=== PATIENT | female | born 1990 | race Caucasian/White ===

== ENCOUNTER → 2016-12-06 | Day surgery (SDC) | payer OTHER ==
--- NOTE | 2016-12-05 16:46 | History & Physical Pre-Op ---
General Information and HPI History of Present Illness: The patient is a 25-year-old 0 Pap smear showing low-grade squamous intraepithelial lesion colposcopic biopsies showing DUSTIN 2. Previous cryotherapy therapy of the cervix Allergies/Medications Allergies: Coded Allergies: No Known Allergies (12/01/16) Past History Surgical History Pertinent Surgical History: none Review of Systems Review of Systems Constitutional: Reports: no symptoms. EENTM: Reports: no symptoms. Cardiovascular: Reports: no symptoms. Respiratory: Reports: no symptoms. GI: Reports: no symptoms. Genitourinary: Reports: no symptoms. Musculoskeletal: Reports: no symptoms. Skin: Reports: no symptoms. Neurological/Psychological: Reports: no symptoms. Hematologic/Endocrine: Reports: no symptoms. Immunologic/Allergic: Reports: no symptoms. All Other Systems: Reviewed and Negative Exam & Diagnostic Data Last 24 Hrs of Vital Signs/I&O Vital signs stable Physical Exam: HEENT: Normocephalic atraumatic Chest: Clear to auscultation bilaterally Cardiovascular: Normal S1-S2 Abdomen: Soft nontender Pelvic: Deferred OR Extremities: No clubbing cyanosis or edema Neurologic: Nonfocal Assessment/Plan Assessment/Plan: DUSTIN-2 LEEP conization As Ranked By This Provider Problem List: 1. DUSTIN II (cervical intraepithelial neoplasia II)
[~2016-12-06] VITALS: Ht 162.6 cm; Wt 49.9 kg
--- NOTE | 2016-12-10 13:19 | Operative Report ---
Operative/Inv Procedure Report Surgery Date: 12/06/16 Name of Procedure: LEEP Pre-Operative Diagnosis: DUSTIN-2 Post-Operative Diagnosis: Same Estimated Blood Loss: scant Surgeon/Learning Support Assistant: ANDRE STEIN MD Anesthesia: local monitored anesthesi Operative/Procedure Note Note: The patient was brought to the operating room and placed on the OR table in the dorsal supine position. She was given adequate anesthesia and repositioned in modified dorsal lithotomy. She was prepped and draped in usual sterile fashion. Cervix was grasped with an Allis clamp and 2 stay sutures of 0 Polysorb were placed at 3 and 9:00 positions in a [id number] fashion. These were tagged. The rubber coated bivalve speculum was placed into the vagina and cervix was injected with 1% lidocaine with epinephrine 2-1/2 mL in each quadrant. A LEEP conization was performed a 6:00 to 12 o'clock position. Very shallow. This was sent to pathology. The base of the defect was coagulated using the Bovie. Hemostasis was good stay sutures were cut and the isthmus removed. The patient was awakened and sent to recovery in good condition. All needle, sponge, and is recalcitrant correct at the end of the procedure 2.
== END ==
LOC: STS 03:49
DX: N87.1 Moderate cervical dysplasia (principal)
CPT/HCPCS: 81025; 88305; 88307; J2250